=== PATIENT | male | born 1950 | race Caucasian/White ===

== ENCOUNTER → 2020-03-12 06:47 | Outpatient (CLI) | payer MEDICARE, OTHER, SELFPAY ==
--- NOTE | 2020-03-12 06:55 | CT_ITS ---
STUDY: CT ABDOMEN AND PELVIS WITH AND WITHOUT CONTRAST REASON FOR EXAM: Male, 69 years old. 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 RADIATION DOSAGE (If Supplied By Facility): CTDIvol = ( 18.19 ) mGy, DLP = ( 2271.15 ) mGycm TECHNIQUE: Transaxial images were obtained from the dome of the diaphragm to the symphysis pubis without oral contrast. 100 ML ISOVUE 300 was administered. Sagittal and coronal images were reconstructed. Individualized dose optimization techniques were used for this CT. COMPARISON: None. FINDINGS: Minimal linear scarring and/or atelectasis at the left lung base. Coronary artery calcification. There is decreased attenuation of the liver consistent with steatosis. Normal gallbladder and extrahepatic biliary system. Normal spleen. Normal pancreas. Normal bilateral adrenal glands. There is a 4.5 cm x 4 cm cyst in the lower pole of the right kidney. There is a 1 cm cyst in the mid lateral portion of the left kidney. Normal visualized stomach. Normal small intestine. There are multiple colonic diverticula consistent with diverticulosis. The appendix is visualized and appears normal. There is diffuse atherosclerotic calcification of the abdominal aorta, without a demonstrated aneurysm. Normal inferior vena cava. Normal retroperitoneum. Diffuse irregular bladder wall thickening. There is enlargement of the prostate gland. It measures 3.9 cm x 4.9 cm. There is a left-sided inguinal hernia containing adipose tissue. There are mild degenerative changes of the visualized lumbar spine. CT/CT Abd/Pelvis W/WO Contrast IMPRESSION: Bilateral renal cysts right larger than left. Diffuse irregular bladder wall thickening. Prostatic enlargement. Electronically Signed: Lance Almaraz, at 10:50 EST , Service support ,
[2020-03-12 07:06] LABS: CREATININE FINGERSTICK 1.4 mg/dL (0.70-1.30)
== END ==
PROVIDERS: PCP Family Medicine; Referring Provider Nurse Practitioner Adult Health; Visit Provider Nurse Practitioner Adult Health
DX: R31.21 Asymptomatic microscopic hematuria (principal)
CPT/HCPCS: 74178; Q9967

== ENCOUNTER → 2023-04-05 | Outpatient (CLI) | payer MEDICARE, OTHER, SELFPAY ==
[2023-04-05 10:29] LABS: PSA,Total - Annual Screen 0.77 ng/mL (0.00-4.00)
== END | disposition home or self-care (01) ==
LOC: LAB 09:29
PROVIDERS: PCP Family Medicine; Referring Provider Nurse Practitioner; Visit Provider Nurse Practitioner
DX: Z12.5 Encounter for screening for malignant neoplasm of prostate (principal)
CPT/HCPCS: 36415; 84153; G0103

== ENCOUNTER → 2023-04-13 | Outpatient (CLI) | payer MEDICARE, OTHER, SELFPAY ==
--- NOTE | 2023-04-13 08:24 | CT_ITS ---
STUDY: CT ABDOMEN AND PELVIS WITH AND WITHOUT CONTRAST REASON FOR EXAM: Male, 72 years old. GROSS HEMATURIA RADIATION DOSAGE (If Supplied By Facility): CTDIvol = ( 16.67 ) mGy, DLP = ( 2083.96 ) mGycm TECHNIQUE: Transaxial images were obtained from the dome of the diaphragm to the symphysis pubis without oral contrast. IV 100mL Isovue-300 was administered. Sagittal and coronal images were reconstructed. Individualized dose optimization techniques were used for this CT. COMPARISON: Comparison is made with prior study dated March 12, 2020. FINDINGS: The visualized lung bases are unremarkable. Coronary artery calcification. 4.1 mm calcified granuloma in the upper lateral aspect of the right lobe of the liver. Diffuse fatty infiltration of the liver. 2 mm hypodensity most likely cyst is seen along the anterior right lobe of the liver as well as in the lateral midportion of the liver. Normal gallbladder and extrahepatic biliary system. Normal spleen. Normal pancreas. Normal bilateral adrenal glands. There is a 4.5 cm cyst in the lower pole of the right kidney. There is a 3 cm x 3.2 cm cyst in the lateral midportion of the left kidney. There is also evidence of a 1.5 cm hypodense nodule in the upper lateral aspect of the left kidney. This is not a typical cyst. This has decreased in size as compared to prior study. Correlation with ultrasound is recommended. There is a small hiatal hernia. Normal small intestine. There are multiple colonic diverticula consistent with diverticulosis. The appendix is visualized and appears normal. There is scattered atherosclerotic calcification of the abdominal aorta and its major visceral branches, without a demonstrated aneurysm. Normal inferior vena cava. Normal retroperitoneum. Mild degree of diffuse bladder wall thickening although the urinary bladder is not completely distended. There is enlargement of the prostate gland. The prostate measures 4.1 cm x 4.3 cm. This causes indentation of the bladder base. There is a left-sided inguinal hernia containing adipose tissue. There are mild degenerative changes of the visualized lumbar spine. CT/CT Abd/Pelvis W/WO Contrast IMPRESSION: Diffuse fatty infiltration of the liver. Stable right renal cyst. 1.5 cm hypodense nodule in the upper lateral aspect of the left kidney. This is decreased in size as compared to prior study. This is not a typical cyst. Correlation with ultrasound is recommended. Bladder wall thickening. Electronically Signed: Lance Almaraz MD at 12:21 EST ,
--- OUTSIDE RECORDS SUMMARY | 2023-04-13 08:37 | XMS RPT_ITS | CCD ---
Author Name Unknown Address [facility] [address] [place] [address] Organization [facility] Care Team Providers Care Director Hospice Operations Name Role Phone CHRIS JONAS, DR MAXIMINO Galdamez Primary Care Physician [phone] CHRIS JONAS, DR MAXIMINO Galdamez Attending Unavailabl e CHRIS , DR MAXIMINO Galdamez Primary Care Unavailabl e CHRIS , DR MAXIMINO Galdamez Attending Unavailabl e CHRIS DO, DR MAXIMINO Galdamez Primary Care Unavailabl e Medications Current Medications Medication Drug Class(es) Dates Sig (Normalized) Sig (Original) atorvastatin 10 mg oral tablet (3 sources) HMG-CoA Reductase Inhibitor Start: 10-10-2021 atorvastatin 10 mg oral tablet Dose : 10 mg = 1 tab(s), Oral, qDay, # 90 tab(s), 3 Refill(s), [place] [facility] [place], cm, 10/10/21 8:26:00 EDT, Height, kg, 10/10/21 8:26:00 EDT, Dosing Weight Start Date: 10/10/21 Status: Ordered Problems Problem Classification Problem Date Documented Date Episodic/Chronic Diabetes mellitus with complications (1 source) Diabetic peripheral neuropathy 05-01-2022 Chronic Diabetes mellitus without complication (3 sources) Type 2 diabetes mellitus; Translations: [Type 2 diabetes mellitus without complications] Onset: 3 10-10-2021 Chronic Diabetes mellitus without complication (2 sources) Hyperglycemia 08-14-2019 Episodic Disorders of lipid metabolism (3 sources) Hypercholesterolemia 01-09-2019 Chronic Genitourinary symptoms and ill-defined conditions (3 sources) Microscopic hematuria 08-14-2019 Episodic Other skin disorders (3 sources) Actinic keratosis 01-09-2019 Episodic Results Test Name Value Interpretation Reference Range Facil ity Encounters Encounter Date Encounter Type Care Provider Facility Start: 05-01-2022 End: 05-06-[address] MAXIMINO PEREZ DO Facility:[facility] Start: 05-01-2022 End: 05-05-[address] MAXIMINO PEREZ DO [facility] Start: 10-07-2021 End: 10-08-[address] MAXIMINO PEREZ DO Facility:[facility] Start: 10-07-2021 End: 10-07-[address] MAXIMINO PEREZ DO [facility] Start: 04-09-2021 End: 04-09-[address] MAXIMINO PEREZ DO [facility] Immunizations Immunization Date Immunization Notes Care Provider Griselda caban 05-15-2021 COVID-19, mRNA, LNP- S, PF, 30 mcg/0.3 mL dose; Translations: [Pfizer-BioNTech COVID-19 Vaccine (Do Not Dilute)] DR MAXIMINO PEREZ DO [facility] 04-24-2021 COVID-19, mRNA, LNP- S, PF, 30 mcg/0.3 mL dose; Translations: [Pfizer-BioNTech COVID-19 Vaccine] DR MAXIMINO PEREZ DO [facility] Payers Date Payer Category Payer Medicare [id number] 2021 Unknown [id number] 1950 Unknown [id number] 1950 Unknown [id number] Social History Date Type Detail Facility Start: 01-09-2019 Never smoked tobacco (f inding) [facility] Evaluation + Plan note Note Date & Type Note Facility Evaluation + Plan note Future Appointments Appointment Date:04/18/2021 09:50:00 AM Scheduled Provider:MAXIMINO PEREZ DO Location:[facility] Appointment Type:[facility] Wellness Medicare [facility] Evaluation + Plan note Note Date & Type Note Facility Evaluation + Plan note Future Appointments Appointment Date:10/10/2021 08:20:00 AM Scheduled Provider:MAXIMINO PEREZ DO Location:[facility] Appointment Type:PC OV [facility] Evaluation + Plan note Laboratory Note Date & Type Note Facility Evaluation + Plan note Future Appointments Appointment Date:11/06/2022 09:35:00 AM Scheduled Provider:MAXIMINO PEREZ DO Location:[facility] Appointment Type:PC OV Future Scheduled TestsProstate Specific Antigen 04/12/22A1C Hemoglobin 04/12/22A1C Hemoglobin 11/01/22Lipid Profile 04/12/22Complete Metabolic Panel 04/12/22 [facility] Hospital course Narrative Note Date & Type Note Facility Hospital course Narrative No data available for this section [facility] Hospital Discharge instructions Note Date & Type Note Facility Hospital Discharge instructions No data available for this section [facility] Progress note Note Date & Type Note Facility Progress note No data available for this section [facility] Summary Purpose Family History No Family History Records Found Advance Directives No Advanced Directives Records Found Additional Source Comments Care Team (unrecognized sect ion and content) Care Team Personnel Name: MAXIMINO PEREZ DO Position: P4 Physician - Primary Care Med Service: Active Provider Member Role: Primary Care Physician Address: Address: [address] Care Team Related Persons Name: FER PANIAGUA Care Team Personnel Name: MAXIMINO PEREZ DO Position: P4 Physician - Primary Care Member Role: Primary Care Physician Address: Address: [address] [place] [address]- Care Team Related Persons Name: FER PANIAGUA (unrecognized sect ion and content) No Status Records Found INFORMATION SOURCE (unrecogn ized section and content) FOR RECORDS PERTAINING TO PATIENTS WHO ARE OR HAVE BEEN ENROLLED IN A CHEMICAL DEPENDENCY/SUBSTANCEABUSE PROGRAM, SOME INFORMATION MAY BE OMITTED. This clinical summary was aggregated from multiple sources. Caution should be exercised in using it in the provision of clinical care. This summary normalizes information from multiple sources, and as a consequence, information in this document may materially change the coding, format and clinical context of patient data. In addition, data may be omitted in some cases. CLINICAL DECISIONS SHOULD BE BASED ON THE PRIMARY CLINICAL RECORDS. [facility] provides no warranty or guarantee of the accuracy or completeness of information in this document.
[2023-04-13 08:54] LABS: CREATININE FINGERSTICK < 1.0 mg/dL (0.70-1.30); EGFR FINGERSTICK > 60.0000 mL/min (>60)
== END | disposition home or self-care (01) ==
LOC: CT 08:20
PROVIDERS: PCP Family Medicine; Referring Provider Urology; Visit Provider Urology
DX: R31.0 Gross hematuria (principal); R31.29 Other microscopic hematuria
CPT/HCPCS: 74178; Q9967